=== PATIENT | female | born 1960 | race Caucasian/White ===

== ENCOUNTER 2019-01-11 15:49 | Emergency (ER) | payer OTHER ==
[2019-01-11] MEDS ORDERED: Acetaminophen/HYDROcodone 325-10 MG Tab PO ONE (15:50)
[2019-01-11] MEDS ORDERED: Acetaminophen/HYDROcodone 325-5 MG Tab PO ONE (15:50)
[2019-01-11] MEDS ORDERED: Sodium Chloride 0.9% 1,000 ML IV ONE ×2 (16:49→17:53)
[2019-01-11 17:16] LABS: ANION GAP 14.1; CHLORIDE,CL 102 mmol/L (101-111); SODIUM,NA 139 mmol/L (135-145)
--- NOTE | 2019-01-11 17:45 | EDM.PDOC ---
<Bakari Yuan - Last Filed: 01/11/19 19:36> ED HPI GENERAL MEDICAL PROBLEM - General Chief Complaint: Genitourinary Problem Stated Complaint: UTI MAYBE KIDNEY STONES Time Seen by Provider: 01/11/19 16:44 - Related Data Allergies Allergy/AdvReac Type Severity Reaction Status Date / Time azithromycin [From Zithromax] Allergy Cannot Verified 01/11/19 16:00 Remember fluconazole [From Diflucan] Allergy Hives Verified 01/11/19 16:00 mold Allergy Cannot Verified 01/11/19 16:00 Remember pollen extracts Allergy Cannot Verified 01/11/19 16:00 Remember Sulfa (Sulfonamide Allergy Hives Verified 01/11/19 16:00 Antibiotics) BEE STINGS Allergy Cannot Uncoded 01/11/19 16:00 Remember Home Meds: Home Meds DULoxetine HCl [Cymbalta] 60 mg PO DAILY 01/11/19 [History] Montelukast [Singulair] 10 mg PO BEDTIME 01/11/19 [History] Course - Vital Signs Last Recorded V/S: Last Vital Signs Temp 98.2 F 01/11/19 15:56 Pulse 69 01/11/19 19:03 Resp 16 01/11/19 19:03 BP 131/72 01/11/19 19:03 Pulse Ox 98 01/11/19 19:03 - Orders/Labs/Meds Labs: Laboratory Tests 01/11/19 01/11/19 01/11/19 Range/Units 16:13 16:44 16:44 WBC 7.1 (5.0-10.0) 10^3/uL RBC 4.81 (4.2-5.4) 10^6/uL Hgb 13.9 (12.0-16.0) g/dL Hct 42.0 (37.0-47.0) % MCV 87.3 (80-100) fL MCH 28.9 (27.0-34.0) pg MCHC 33.1 (33.0-35.0) g/dL Plt Count 223 (150-450) 10^3/uL Neut % (Auto) 76.1 H (42.2-75.2) % Lymph % (Auto) 15.0 L (20.5-50.1) % [place] % (Auto) 6.5 (2-8) % Eos % (Auto) 2.1 (1.0-3.0) % Baso % (Auto) 0.3 (0.0-1.0) % Sodium 139 (135-145) mmol/L Potassium 3.1 L (3.6-5.0) mmol/L Chloride 102 (101-111) mmol/L Carbon Dioxide 26.0 (21.0-31.0) mmol/L Anion Gap 14.1 BUN 16 (7-18) mg/dL Creatinine 0.8 (0.6-1.3) mg/dL Est Cr Clr Drug Dosing 65.38 mL/min Estimated GFR (MDRD) > 60 BUN/Creatinine Ratio 20.00 Glucose 128 H (74-105) mg/dL Calcium 8.9 (8.4-10.2) mg/dl Total Bilirubin 0.8 (0.2-1.0) mg/dL AST 18 (10-42) IU/L ALT 17 (10-60) IU/L Alkaline Phosphatase 53 (42-121) IU/L Total Protein 6.7 (6.7-8.2) g/dl Albumin 4.3 (3.2-5.5) g/dl Globulin 2.4 Albumin/Globulin Ratio 1.79 Urine Color Red (YELLOW) Urine Appearance Cloudy (CLEAR) Urine pH 5.5 (5.0-9.0) Ur Specific [place] 1.025 (1.005-1.030) Urine Protein 100 H (NEGATIVE) Urine Glucose (UA) Negative (NEGATIVE) Urine Ketones Trace H (NEGATIVE) Urine Occult Blood Large H (NEGATIVE) Urine Nitrite Negative (NEGATIVE) Urine Bilirubin Small H (NEGATIVE) Urine Urobilinogen 0.2 (0.2-1.0) mg/dL Ur Leukocyte Esterase Negative (NEGATIVE) Urine RBC Packed H /HPF Urine WBC 0-5 (0-5/HPF) /HPF Ur Epithelial Cells Rare /HPF Urine Bacteria Few (0-FEW/HPF) /HPF Meds: Medications Discontinued Medications Generic Name Dose Route Start Last Admin Trade Name Freq PRN Reason Stop Dose Admin Hydrocodone Bitart/Acetaminophen Confirm 01/11/19 19:42 01/11/19 19:55 Glen 325-5 Mg Administered 01/11/19 19:43 Not Given Dose 2 tab .ROUTE .STK-MED ONE Hydrocodone Bitart/Acetaminophen 2 tab 01/11/19 15:50 Glen 325-10 Mg PO 01/11/19 15:51 .STK-MED ONE Hydrocodone Bitart/Acetaminophen 2 tab 01/11/19 15:50 Glen 325-5 Mg PO 01/11/19 15:51 .STK-MED ONE Diphenhydramine HCl 25 mg 01/11/19 18:39 01/11/19 18:56 Benadryl IVPUSH 01/11/19 18:40 25 mg ONETIME ONE Administration Sodium Chloride 1,000 mls @ 999 mls/hr 01/11/19 16:49 01/11/19 16:48 Normal Saline IV 01/11/19 17:49 999 mls/hr ONETIME ONE Administration Sodium Chloride 1,000 mls @ 999 mls/hr 01/11/19 17:53 01/11/19 18:01 Normal Saline IV 01/11/19 18:53 999 mls/hr .BOLUS ONE Administration Ketorolac Tromethamine 30 mg 01/11/19 17:53 01/11/19 18:01 Toradol IVPUSH 01/11/19 17:54 30 mg ONETIME ONE Administration Orphenadrine Citrate 60 mg 01/11/19 18:39 01/11/19 19:00 Norflex IV 01/11/19 18:40 60 mg NOW STA Administration Tamsulosin HCl 0.4 mg 01/11/19 18:44 01/11/19 18:55 Flomax PO 01/11/19 18:45 0.4 mg ONETIME ONE Administration - Re-Assessments/Exams Free Text/Narrative Re-Assessment/Exam: 01/11/19 19:00 I assumed care of the patient at 1830. Her urine has cleared and she does not notice any gross hematuria anymore. Her pain is somewhat better but she still feels a spasms and discomfort in her abdomen. I reviewed the CT scan showing a 3 mm obstructing stone at the right UVJ. I will give her some Benadryl tamsulosin as well as some Norflex and reevaluate her. Service kidney stone that is also in the left renal pelvis that is nonobstructing at this time. I will give her refills on her tamsulosin that I'll send her home with as well as an bigger course of Glen as due to the probability of recurrence of kidney stone with one in the left renal pelvis. Hopefully we'll be able to control her pain once this one decides to descend. 01/11/19 19:36 following the above therapy the patient felt much better. She did not have the pain spasms or pressure that she had previously. We will discharge her home with tamsulosin hydrocodone for pain. Two dispense from the ER of the hydrocodone.strain her urine to look for kidney stone. She is comfortable with this plan and her questions were answered. Departure - Departure Time of Disposition: 19:00 Disposition: Home, Self-Care 01 Clinical Impression: Kidney stone - Discharge Information Instructions: Renal Colic, [id number], Kidney Stones, [id number], Pain Medicine Instructions, [id number] Referrals: Felix Church MD [Primary Care Provider] - Forms: ED Department Discharge Additional Instructions: Tylenol and/or ibuprofen as needed for pain. If pain not controlled with above. Glen, one tab by mouth every 46 hours when necessary pain. Prescription given to the patient. #30. Given a larger amount due to the concerns of the kidney stone that is also in the left kidney which may descend and she will have extra pain management for when this develops. Tamsulosin 1 tab by mouth at bedtime for the next 7 days. #7, 1 refill same concerns as above. increase fluids over the next couple of days to help flush the kidney stone. Strain your urine to ensure passage of the stone. Return to the emergency department if new or worsening symptoms. Check with her primary care provider in the next 35 days if not improving sooner if worse. - Assessment/Plan Assessment:: right 3 mm obstructing stone at the UVJ. Hydronephrosis. 3 mm nonobstructing stone mid aspect of the left kidney renal pelvis Plan: Tylenol and/or ibuprofen as needed for pain. If pain not controlled with above. Glen, one tab by mouth every 46 hours when necessary pain. Prescription given to the patient. #30. Given a larger amount due to the concerns of the kidney stone that is also in the left kidney which may descend and she will have extra pain management for when this develops. Tamsulosin 1 tab by mouth at bedtime for the next 7 days. #7, 1 refill same concerns as above. increase fluids over the next couple of days to help flush the kidney stone. Strain your urine to ensure passage of the stone. Return to the emergency department if new or worsening symptoms. Check with her primary care provider in the next 35 days if not improving sooner if worse. <Arina Ryan - Last Filed: 01/13/19 10:22> ED HPI GENERAL MEDICAL PROBLEM - General Source of Information: Reports: Patient History Limitations: Reports: No Limitations - History of Present Illness INITIAL COMMENTS - FREE TEXT/NARRATIVE: Patient to ER with c/o pressure/pain in the RLQ and right flank. She states she has had blood in the urine. Patient states she has had a kidney stone in the past as well, and they have had to use laser to blast them. Denies fever or chills. Admits to some nausea, but denies vomiting or diarrhea. Patient appears to be uncomfortable. Onset: Today, Sudden Right Groin Pain Score (Numeric/FACES): 5 Past Medical History HEENT History: Reports: Allergic Rhinitis, Otitis Media Cardiovascular History: Reports: None Respiratory History: Reports: None Gastrointestinal History: Reports: Chronic Constipation, Irritable Bowel Syndrome Other Gastrointestinal History: rectal bleed Genitourinary History: Reports: Renal Calculus, UTI, Recurrent Other Genitourinary History: has herpes [facility] [employer] History: Reports: Dysfunctional Uterine Bleeding Other [facility] [employer] History: 2 nvd and 1 miscariage Musculoskeletal History: Reports: Back Pain, Chronic, Fibromyalgia, Other (See Below) Other Musculoskeletal History: right sciatica with a bulging disc. Psychiatric History: Reports: Anxiety, Depression, Mood Swings, PTSD, Suicidal Ideation Other Psychiatric History: borderline personalities Endocrine/Metabolic History: Reports: None Hematologic History: Reports: None Immunologic History: Reports: None Oncologic (Cancer) History: Reports: Basal Cell Carcinoma, Malignant Melanoma, Other (See Below) Other Oncologic History: mastectomy done to pre-cancerous lumps and fibrocystic disease Dermatologic History: Reports: Cellulitis, Melanoma - Infectious Disease History Infectious Disease History: Reports: Chicken Pox - Past Surgical History HEENT Surgical History: Reports: Adenoidectomy, Myringotomy w Tube(s), Tonsillectomy Female Surgical History: Reports: Breast Reconstruction, D&C, Hysterectomy, Kidney stone extraction, Mastectomy Neurological Surgical History: Reports: Scoliosis Musculoskeletal Surgical History: Reports: Arthroscopic Knee Oncologic Surgical History: Reports: Biopsy of Breast, Lumpectomy, Mastectomy Dermatological Surgical History: Reports: Skin Biopsy Social & Family History - Family History Family Medical History: Noncontributory : Reports: Other (See Below) Other Family History: Renal Failure- Grandpa - Tobacco Use Smoking Status *Q: Never Smoker Second Hand Smoke Exposure: No - Caffeine Use Caffeine Use: Reports: None - Recreational Drug Use Recreational Drug Use: No ED ROS GENERAL - Review of Systems Review Of Systems: ROS reveals no pertinent complaints other than HPI. ED EXAM, RENAL/ - Physical Exam Exam: See Below Exam Limited By: No Limitations General Appearance: Alert, WD/WN, Mild Distress Eye Exam: Bilateral Eye: EOMI, Normal Inspection Ears: Normal External Exam, Hearing Grossly Normal Nose: Normal Inspection Throat/Mouth: Normal Inspection, Normal Voice, No Airway Compromise Head: Atraumatic, Normocephalic Neck: Normal Inspection, Supple, Non-Tender, Full Range of Motion Respiratory/Chest: No Respiratory Distress, Lungs Clear, Normal Breath Sounds, No Accessory Muscle Use, Chest Non-Tender Cardiovascular: Normal Peripheral Pulses, Regular Rate, Rhythm, No Edema, No Gallop, No JVD, No Murmur, No Rub GI/Abdominal: Normal Bowel Sounds, Soft, Tender (RLQ) (Female) Exam: Deferred Rectal (Female) Exam: Deferred Back Exam: Normal Inspection, Full Range of Motion, CVA Tenderness (R) Extremities: Normal Inspection, Normal Range of Motion, Non-Tender, Normal Capillary Refill, No Pedal Edema Neurological: Alert, Oriented, CN II-XII Intact, Normal Cognition, Normal Gait, Normal Reflexes, No Motor/Sensory Deficits Psychiatric: Normal Affect, Normal Mood Skin Exam: Warm, Dry, Intact, Normal Color, No Rash Lymphatic: No Adenopathy Course - Radiology Interpretation Free Text/Narrative:: CT of abdomen/Pelvis without contrast: FINDINGS: Lower thorax: No acute findings. ABDOMEN: Liver: Normal. No mass. Gallbladder and bile ducts: Normal. No calcified stones. No ductal dilation. Pancreas: Normal. No ductal dilation. Spleen: Normal. No splenomegaly. Adrenals: Normal. No mass. Kidneys and ureters: 3 mm obstructing stone at the right ureteral vesicle junction causing hydronephrosis as well as hydroureter on the right. 3 mm nonobstructing stone mid aspect left kidney Stomach and bowel: Normal. No obstruction. No mucosal thickening. Appendix: No evidence of appendicitis. PELVIS: Bladder: Unremarkable as visualized. Reproductive: Unremarkable as visualized. ABDOMEN and PELVIS: Intraperitoneal space: Normal. No free air. No significant fluid collection. Bones/joints: No acute fracture. No dislocation. Soft tissues: Unremarkable. Vasculature: Normal. No abdominal aortic aneurysm. Lymph nodes: Normal. No enlarged lymph nodes. IMPRESSION: 1. 3 mm obstructing stone at the right ureteral vesicle junction causing hydronephrosis as well as hydroureter on the right. 2. 3 mm nonobstructing stone mid aspect left kidney Thank you for allowing us to participate in the care of your patient. Dictated and Authenticated by: Sergio Ramierz MD 01/11/2019 6:28 PM Central Time ([place] & [place]) See Rad report
[2019-01-11] MEDS ORDERED: Ketorolac 30 MG/ML SDV IVPUSH ONE (17:53)
[2019-01-11] MEDS ORDERED: diphenhydrAMINE 50 MG/ML SDV IVPUSH ONE (18:39)
[2019-01-11] MEDS ORDERED: Tamsulosin 0.4 MG Cap.ER PO ONE (18:44)
[2019-01-11 19:04] VITALS: BP 131/72
[2019-01-11] MEDS ORDERED: Acetaminophen/HYDROcodone 325-5 MG Tab ONE (19:42)
== END 2019-01-11 19:55 | disposition home or self-care (01) ==
LOC: DL.ED 15:49
DX: N13.2 Hydronephrosis with renal and ureteral calculous obstruction (principal); Z88.1 Allergy status to other antibiotic agents; Z88.2 Allergy status to sulfonamides; Z91.030 Bee allergy status; Z88.8 Allergy status to other drugs, medicaments and biological substances; Z79.899 Other long term (current) drug therapy; Z98.890 Other specified postprocedural states; Z90.710 Acquired absence of both cervix and uterus; Z90.49 Acquired absence of other specified parts of digestive tract
CPT/HCPCS: 36415; 74176; 80053; 81001; 85025; 96365; 96366; 96375; 99284; A9270; J1200; J1885; J2360; J7030

== ENCOUNTER 2019-10-13 05:14 | Day surgery (SDC) | payer OTHER ==
[~2019-10-13 05:14] MED LIST: Dextrose 5%-0.45% NaCl 1,000 ML IV SCH; Sodium Chloride 0.9% 10 ML Syringe FLUSH PRN
[2019-10-13] MEDS ORDERED: fentaNYL 100 MCG/2 ML SDV IV ONE ×3 (05:15→06:34)
[2019-10-13] MEDS ORDERED: Midazolam 1 MG/ML 2 ML SDV IV ONE ×3 (05:15→06:35)
[2019-10-13] MEDS ORDERED: fentaNYL 100 MCG/2 ML SDV ONE (06:14)
[2019-10-13] MEDS ORDERED: Midazolam 1 MG/ML 2 ML SDV ONE (06:14)
[2019-10-13 10:58] VITALS: BP 116/64; PULSE 50
--- NOTE | 2019-10-13 13:49 | OR ---
DATE: 10/13/2019 PROCEDURE PERFORMED: Esophagogastroduodenoscopy and multiple pinch biopsies. INSTRUMENT USED: GIF-HQ190 Olympus video panendoscope. PREMEDICATIONS: No oral or topical anesthesia used. Fentanyl 100 mcg intravenous, Versed 2 mg intravenous, nasal O2 cannula. The procedure was done under pulse oximetry, BP recording, and cartridge belt puncher. INDICATION: The patient with persistent upper abdominal pain as well as dyspepsia and bloating, unexplained and not responsive to medical measures, on PPI. Esophagogastroduodenoscopy is performed for detection of any active erosive lesions, [place] esophagus and/or malignancy also under consideration, H. pylori status to be determined, small bowel biopsies to be obtained for celiac disease if indicated, endoscopic hemostasis therapy if needed. DESCRIPTION OF PROCEDURE: The scope was passed with ease. Adequate visualization of the esophagus was made from proximal to distal areas. No upper esophageal lesions identified. No distal esophageal stricture. No uphill or downhill esophageal varices. No Mayra-Cuellar tear. No evidence of erosive esophagitis by [place] criteria. No esophageal polyp or tumor mass identified. Z-line was seen at around 39 cm distal to the oral verge, configuration consistent with grade 1 by ZAP classification. No proximal gastric varices noted. Gastric fundus examination by retroflexion showed no polypoid lesions. No gastric ulcer, malignant mass, or vascular ectasia identified. Patchy antral mucosal erythema was noted. Duodenal bulb showed patchy erythema and erosion in the postbulbar area. Visualized second part of the duodenum otherwise was unremarkable. Multiple pinch biopsies, 4 in number, were taken from different areas of the second part of the duodenum, and tissues were also obtained from the duodenal bulb at 9 and 12 o'clock positions and sent for histopathologic evidence of celiac disease. Multiple pinch biopsies were obtained from the gastric antrum and proximal body and sent for PyloriTek test for H. pylori and histopathology. No bleeding was noted from any of the visualized areas at the completion of examination. Photographs were taken of duodenal bulb, gastric antrum, fundus, and distal esophagus. IMPRESSION: 1. Patchy antral gastritis. 2. Patchy duodenitis. 3. Duodenal erosion. The patient tolerated the procedure well. [facility] /[id number]
== END 2019-10-13 08:52 | disposition home or self-care (01) ==
LOC: DL.ENDO 05:14
PROVIDERS: ATTEND Internal Medicine Gastroenterology
DX: K29.70 Gastritis, unspecified, without bleeding (principal); K29.80 Duodenitis without bleeding; K26.9 Duodenal ulcer, unspecified as acute or chronic, without hemorrhage or perforation; Z90.49 Acquired absence of other specified parts of digestive tract; Z88.3 Allergy status to other anti-infective agents; Z88.2 Allergy status to sulfonamides; Z88.1 Allergy status to other antibiotic agents
CPT/HCPCS: 43239; 87077; J2250; J3010; J7042

== ENCOUNTER 2019-10-14 07:01 | Day surgery (SDC) | payer OTHER ==
[~2019-10-14 07:01] MED LIST changes: -Dextrose 5%-0.45% NaCl 1,000 ML IV SCH; +Midazolam 1 MG/ML 2 ML SDV ONE; -Sodium Chloride 0.9% 10 ML Syringe FLUSH PRN; +fentaNYL 100 MCG/2 ML SDV ONE
[2019-10-14] MEDS ORDERED: Dextrose 5%-0.45% NaCl 1,000 ML IV SCH (07:30)
[2019-10-14] MEDS ORDERED: fentaNYL 100 MCG/2 ML SDV IV ONE ×3 (08:24→08:34)
[2019-10-14] MEDS ORDERED: Midazolam 1 MG/ML 2 ML SDV IV ONE ×6 (08:25→08:32)
[2019-10-14 10:49] VITALS: BP 105/65; PULSE 61
--- NOTE | 2019-10-14 15:11 | OR ---
DATE: 10/14/2019 PROCEDURE PERFORMED: Total colonoscopy. INSTRUMENT USED: [id number]-H190DL Olympus video colonoscope. PREMEDICATIONS: Fentanyl 100 mcg intravenous, Versed 4 mg intravenous. Nasal O2 cannula. The procedure was done under pulse oximetry, BP recording, and electronic device monitor. INDICATIONS: The patient with rectal bleeding and increasing constipation. Colonoscopic examination was done for detection of any polypoid lesions and removal, endoscopic hemostasis therapy if needed. DESCRIPTION OF PROCEDURE: Initial rectal exam showed large external hemorrhoidal tags and internal hemorrhoids without bleeding from them. The colonoscope was passed with ease up to the ileocecal area. Photographs were taken of the normal-appearing cecum identified by landmarks of appendiceal orifice and double-bulged ileocecal folds. No bleeding was noted from any of the visualized areas at the commencement of the examination. No stricture. No vascular ectasia. No large isolated ulcerations seen. No evidence of diffuse inflammatory bowel disease in the form of friability, contact bleeding, or ulcerations. No polyp or tumor mass identified. There was moderate amount of liquid material that had to be aspirated clear. The bowel preparation was found to be adequate, [place] scale 2 in all the regions. Probing the proximal sides of folds and flexures using adequate distention and clearing up the stool material, withdrawal of the scope was made, cecum to rectum time over 6 minutes. No bleeding was noted from any of the visualized areas at the completion of examination. IMPRESSION: External and internal hemorrhoids. The patient tolerated the procedure well. [facility] /[id number]
== END 2019-10-14 10:55 | disposition home or self-care (01) ==
LOC: DL.ENDO 07:01
PROVIDERS: ATTEND Internal Medicine Gastroenterology
DX: K62.5 Hemorrhage of anus and rectum (principal); K59.00 Constipation, unspecified; K64.8 Other hemorrhoids; K64.4 Residual hemorrhoidal skin tags; F41.1 Generalized anxiety disorder; F32.9 Major depressive disorder, single episode, unspecified; Z90.49 Acquired absence of other specified parts of digestive tract; Z88.3 Allergy status to other anti-infective agents; Z88.2 Allergy status to sulfonamides
CPT/HCPCS: 45378; J2250; J3010; J7042; G0121

== ENCOUNTER 2021-11-27 14:32 | Emergency (ER) | payer OTHER ==
[2021-11-27 16:30] VITALS: BP 136/91; PULSE 103
[2021-11-27] MEDS ORDERED: Ketorolac 30 MG/ML SDV IVPUSH ONE (16:36)
[2021-11-27] MEDS ORDERED: HYDROmorphone 0.5 MG/0.5 ML Syringe IVPUSH ONE (16:36)
[2021-11-27] MEDS ORDERED: Sodium Chloride 0.9% 1,000 ML IV ONE (16:36)
[2021-11-27] MEDS ORDERED: Sodium Chloride 0.9% 10 ML Syringe FLUSH PRN (16:36)
--- NOTE | 2021-11-27 17:00 | CT ---
EXAMINATION: Abdomen Pelvis wo Cont SEX: Female AGE: 61 years CLINICAL HISTORY: 61-year-old female complaining of right flank pain that radiates to the groin (hematuria). Scan technique: Volume acquisition of data emergency unenhanced CT scan abdomen and pelvis (renal stone study) obtained with patient lying supine on the Siemens multi slice scanner [place], [place]. All data archived in the PACS system for storage, reformatting axial/sagittal/coronal planes and study. Interpretation: Abnormal. 1. *Solitary tiny 1.5 x 3.0 mm oval calcification lodged in the distal left ureter (URETEROLITH). Associated mild ureterectasis and pyelectasis identified proximally left kidney. 2. Similar tiny calyceal calcification lower midpole contralateral left kidney. No signs of obstructive uropathy on the left. 3. Unenhanced midline urinary bladder unremarkable. 4. Scattered arterial vascular calcifications normal caliber aortoiliac vessels. Phleboliths in the pelvis. 5. No pelvic or abdominal mass lesion, mesenteric or retroperitoneal lymphadenopathy, signs of mechanical bowel obstruction, ascites or free intraperitoneal air. 6. Gallbladder, unenhanced liver, stomach, spleen, pancreas and adrenal glands anatomically correct i.e. negative. 7. Osteoporosis; chronic L4-5 and L5-S1 disc disease; atrophic spondylosis lumbar spine. Bilateral breast prostheses.
[2021-11-27 17:29] LABS: CHLORIDE,CL 102 mmol/L (98-107); SODIUM,NA 142 mmol/L (136-145)
[2021-11-27] MEDS ORDERED: cefTRIAXone 2 GM in Sodium Chloride 0.9% 100 ML IV ONE (17:33)
--- NOTE | 2021-11-27 17:48 | EDM.PDOC ---
Scribed by Marily Howell 11/27/21 1609 for Bandar Mckinney MD ED HPI GENERAL MEDICAL PROBLEM - General Chief Complaint: Flank Pain Stated Complaint: KIDNEY STONE OR UTI PER PT Time Seen by Provider: 11/27/21 16:27 Source of Information: Reports: Patient, RN, RN Notes Reviewed History Limitations: Reports: No Limitations - History of Present Illness INITIAL COMMENTS - FREE TEXT/NARRATIVE: Patient presents [facility] ED by POV stating that she has right flank pain and blood in the urine that started today while at work. Now she has pain in the LLQ as well. She has a history of kidney stones. Her pain is 9/10 but she has not taken anything for it. Onset: Today Duration: Constant Location: Reports: Other (flank) Quality: Reports: Ache Severity: Severe Improves with: Reports: None Worsens with: Reports: None Associated Symptoms: Reports: No Other Symptoms Abdomen Pain Score (Numeric/FACES): 9 - Related Data Allergies Allergy/AdvReac Type Severity Reaction Status Date / Time azithromycin [From Zithromax] Allergy Cannot Verified 11/27/21 16:31 Remember fluconazole [From Diflucan] Allergy Hives Verified 11/27/21 16:31 mold Allergy Cannot Verified 11/27/21 16:31 Remember pollen extracts Allergy Cannot Verified 11/27/21 16:31 Remember Sulfa (Sulfonamide Allergy Hives Verified 11/27/21 16:31 Antibiotics) BEE STINGS Allergy Cannot Uncoded 11/27/21 16:31 Remember Home Meds: Home Meds DULoxetine HCl [Cymbalta] 60 mg PO DAILY 01/11/19 [History] Montelukast [Singulair] 10 mg PO BEDTIME 01/11/19 [History] Budesonide [Pulmicort] 1 vial NEB BID 10/12/19 [History] Ipratropium/Albuterol Sulfate [Iprat-Albut 0.5-3(2.5) mg/3 ml] 1 vial INH TID PRN 10/12/19 [History] Meclizine [Antivert] 25 mg PO TID 10/12/19 [History] diphenhydrAMINE [Benadryl] 25 mg PO DAILY 10/12/19 [History] valACYclovir [Valtrex] 500 mg PO TID PRN 10/12/19 [History] Past Medical History HEENT History: Reports: Allergic Rhinitis, Otitis Media Other HEENT History: HX OF RECURRENT SINUS INFECTIONS Cardiovascular History: Reports: None Respiratory History: Reports: Sleep Apnea Gastrointestinal History: Reports: Chronic Constipation, Colon Polyp, Hemorrhoids, Irritable Bowel Syndrome Other Gastrointestinal History: rectal bleed Genitourinary History: Reports: Renal Calculus, UTI, Recurrent Other Genitourinary History: has herpes SPOT CHECKER History: Reports: Dysfunctional Uterine Bleeding, , Spontaneous Other SPOT CHECKER History: 2 nvd and 1 miscariage Musculoskeletal History: Reports: Back Pain, Chronic, Fibromyalgia, Other (See Below) Other Musculoskeletal History: right sciatica with a bulging disc. Neurological History: Reports: None Psychiatric History: Reports: Anxiety, Depression, Mood Swings, PTSD, Suicidal Ideation, Other (See Below) Other Psychiatric History: borderline personalities Endocrine/Metabolic History: Reports: None Hematologic History: Reports: None Immunologic History: Reports: None Oncologic (Cancer) History: Reports: Basal Cell Carcinoma, Malignant Melanoma, Other (See Below) Other Oncologic History: mastectomy done to pre-cancerous lumps and fibrocystic disease. BASAL CELL, FACE CHEST & ARMS Dermatologic History: Reports: Cellulitis, Melanoma - Infectious Disease History Infectious Disease History: Reports: Chicken Pox - Past Surgical History Male Surgical History: Social & Family History - Family History Family Medical History: No Pertinent Family History : Reports: Other (See Below) Other Family History: Renal Failure- Grandpa - Caffeine Use Caffeine Use: Reports: None ED ROS GENERAL - Review of Systems Review Of Systems: Comprehensive ROS is negative, except as noted in HPI. ED EXAM, RENAL/ - Physical Exam Exam: See Below Exam Limited By: No Limitations General Appearance: Alert, WD/WN, No Apparent Distress Throat/Mouth: Normal Voice, No Airway Compromise, Other (Dry oral mucosa) Head: Atraumatic, Normocephalic Neck: Normal Inspection Respiratory/Chest: No Respiratory Distress, Lungs Clear, Normal Breath Sounds, No Accessory Muscle Use, Chest Non-Tender Cardiovascular: Regular Rate, Rhythm, Tachycardia GI/Abdominal: Normal Bowel Sounds, Soft, Tender (Generalized lower abdominal tenderness). No: Guarding, Rigid, Rebound Back Exam: Full Range of Motion. No: CVA Tenderness (L), CVA Tenderness (R) Extremities: Normal Range of Motion Neurological: Alert, Oriented Psychiatric: Normal Mood Skin Exam: Warm, Dry, Intact, Normal Color, No Rash Course - Vital Signs Last Recorded V/S: Last Vital Signs Temp 97.1 F 11/27/21 16:28 Pulse 103 H 11/27/21 16:28 Resp 14 11/27/21 16:28 BP 136/91 H 11/27/21 16:28 Pulse Ox 96 11/27/21 16:28 - Orders/Labs/Meds Orders: Active Orders 24 hr Category Date Time Status Peripheral IV Care [RC] . DIRECTED Care 11/27/21 16:36 Active CULTURE URINE [RM] Stat Lab 11/27/21 14:46 Received Sodium Chloride 0.9% [Saline Flush] Med 11/27/21 16:36 Active 10 ml FLUSH ASDIRECTED PRN cefTRIAXone [Rocephin] 2 gm Med 11/27/21 17:33 Active Sodium Chloride 0.9% [Normal Saline AdvBag] 100 ml IV ONETIME Peripheral IV Insertion Adult [OM.PC] Stat Oth 11/27/21 16:36 Ordered Medication Orders Ceftriaxone Sodium 2 gm/ (Sodium Chloride) 100 mls @ 200 mls/hr IV ONETIME ONE Stop: 11/27/21 18:02 Sodium Chloride (Sodium Chloride 0.9% 10 Ml Syringe) 10 ml FLUSH ASDIRECTED PRN PRN Reason: Keep Vein Open Labs: Laboratory Tests 11/27/21 11/27/21 11/27/21 Range/Units 14:46 17:06 17:06 WBC 12.2 H (5.0-10.0) 10^3/uL RBC 4.91 (4.2-5.4) 10^6/uL Hgb 14.0 (12.0-16.0) g/dL Hct 43.1 (37.0-47.0) % MCV 87.8 (80-100) fL MCH 28.5 (27.0-34.0) pg MCHC 32.5 L (33.0-35.0) g/dL Plt Count 254 (150-450) 10^3/uL Neut % (Auto) 81.7 H (42.2-75.2) % Lymph % (Auto) 11.5 L (20.5-50.1) % Harding % (Auto) 6.0 (2-8) % Eos % (Auto) 0.6 L (1.0-3.0) % Baso % (Auto) 0.2 (0.0-1.0) % Sodium 142 (136-145) mmol/L Potassium 4.0 (3.5-5.1) mmol/L Chloride 102 (98-107) mmol/L Carbon Dioxide 30 (21-32) mmol/L Anion Gap 14.0 H (7-13) mEq/L BUN 15 (7-18) mg/dL Creatinine 0.91 (0.55-1.02) mg/dL Est Cr Clr Drug Dosing 57.68 mL/min Estimated GFR (MDRD) > 60 Glucose 121 H (70-99) mg/dL Calcium 9.1 (8.5-10.1) mg/dL Urine Color Red (YELLOW) Urine Appearance Cloudy (CLEAR) Urine pH 5.5 (5.0-9.0) Ur Specific Rachel >= 1.030 (1.005-1.030) Urine Protein >=300 H (NEGATIVE) Urine Glucose (UA) Negative (NEGATIVE) Urine Ketones Trace H (NEGATIVE) Urine Occult Blood Large H (NEGATIVE) Urine Nitrite Positive H (NEGATIVE) Urine Bilirubin Moderate H (NEGATIVE) Urine Urobilinogen 1.0 (0.2-1.0) mg/dL Ur Leukocyte Esterase Negative (NEGATIVE) Urine RBC Packed H (0-5) /HPF Urine WBC 5-10 H (0-5/HPF) /HPF Ur Epithelial Cells Few (NOT SEEN) /HPF Urine Bacteria Moderate H (0-FEW/HPF) /HPF Meds: Medications Generic Name Dose Route Start Last Admin Trade Name Freq PRN Reason Stop Dose Admin Ceftriaxone Sodium 2 gm/ 100 mls @ 200 mls/hr 11/27/21 17:33 Sodium Chloride IV 11/27/21 18:02 ONETIME ONE Sodium Chloride 10 ml 11/27/21 16:36 Sodium Chloride 0.9% 10 Ml Syringe FLUSH ASDIRECTED PRN Keep Vein Open Discontinued Medications Generic Name Dose Route Start Last Admin Trade Name Freq PRN Reason Stop Dose Admin Hydromorphone HCl 0.5 mg 11/27/21 16:36 11/27/21 17:18 Hydromorphone 0.5 Mg/0.5 Ml Syringe IVPUSH 11/27/21 16:37 0.5 mg ONETIME ONE Administration Sodium Chloride 1,000 mls @ 999 mls/hr 11/27/21 16:36 11/27/21 17:18 Normal Saline IV 11/27/21 17:36 999 mls/hr .BOLUS ONE Administration Ketorolac Tromethamine 30 mg 11/27/21 16:36 11/27/21 17:19 Ketorolac 30 Mg/Ml Sdv IVPUSH 11/27/21 16:37 30 mg ONETIME ONE Administration - Radiology Interpretation Free Text/Narrative:: CT abdomen and pelvis: Solitary tiny 1.5x3.0mm oval calcification lodged in the distal left ureter (ureterolith). Associated mild ureterectasis and pyelectasis identified proximally left kidney. Similar tiny calyceal calcification lower midpole contralateral left kidney. No signs of obstructive uropathy on the left. Unenhanced midline urinary bladder unremarkable. See rad report. Departure - Departure Time of Disposition: 18:40 Disposition: Home, Self-Care 01 Condition: Good Clinical Impression: Kidney stone on left side, UTI, Urinary tract infectious disease - Discharge Information *PRESCRIPTION DRUG MONITORING PROGRAM REVIEWED*: No *COPY OF PRESCRIPTION DRUG MONITORING REPORT IN PATIENT HOWARD: No Instructions: Urinary Tract Infection, Adult, [id number], Kidney Stones, [id number], Renal Colic, [id number] Forms: ED Department Discharge Additional Instructions: Rx: Cipro 500mg Rx: Zofran 4mg Rx: Flomax 0.4mg Rx: Percocet (Oxycodone) 5mg/325mg *Do not drive while under the influence of this medication. Drink plenty of water. Follow up in clinic with Dr. Church in 2 to 3 days for recheck, and for referral to urology clinic if needed. Sepsis Event Note (ED) - Focused Exam Vital Signs: Vital Signs Temp Pulse Resp BP Pulse Ox 11/27/21 16:28 97.1 F 103 H 14 136/91 H 96 - My Orders Last 24 Hours: My Active Orders 11/27/21 14:46 CULTURE URINE [RM] Stat 11/27/21 16:36 Peripheral IV Care [RC] . DIRECTED Sodium Chloride 0.9% [Saline Flush] 10 ml FLUSH ASDIRECTED PRN Peripheral IV Insertion Adult [OM.PC] Stat 11/27/21 17:33 cefTRIAXone [Rocephin] 2 gm Sodium Chloride 0.9% [Normal Saline AdvBag] 100 ml IV ONETIME - Assessment/Plan Last 24 Hours: My Active Orders 11/27/21 14:46 CULTURE URINE [RM] Stat 11/27/21 16:36 Peripheral IV Care [RC] . DIRECTED Sodium Chloride 0.9% [Saline Flush] 10 ml FLUSH ASDIRECTED PRN Peripheral IV Insertion Adult [OM.PC] Stat 11/27/21 17:33 cefTRIAXone [Rocephin] 2 gm Sodium Chloride 0.9% [Normal Saline AdvBag] 100 ml IV ONETIME I have read and agree with the documentation that has been completed regarding this visit. By signing this record, I attest that the documentation was completed in my physical presence and is an accurate record of the encounter.
== END 2021-11-27 18:08 | disposition home or self-care (01) ==
LOC: DL.ED 14:32
DX: N20.0 Calculus of kidney (principal); N39.0 Urinary tract infection, site not specified; Z88.1 Allergy status to other antibiotic agents; Z88.8 Allergy status to other drugs, medicaments and biological substances; Z91.048 Other nonmedicinal substance allergy status; Z88.2 Allergy status to sulfonamides; Z91.030 Bee allergy status; Z79.899 Other long term (current) drug therapy
CPT/HCPCS: 36415; 74176; 80048; 81001; 85025; 87086; 96365; 96375; 99284; J0696; J1170; J1885; J7030

== ENCOUNTER 2024-06-01 05:36 | Day surgery (SDC) | payer OTHER ==
[2024-06-01] MEDS ORDERED: fentaNYL 100 MCG/2 ML SDV IV ONE (05:37)
[2024-06-01] MEDS ORDERED: Midazolam 1 MG/ML 2 ML SDV IV ONE (05:37)
[2024-06-01] MEDS ORDERED: Midazolam 1 MG/ML 2 ML SDV ONE (06:08)
[2024-06-01] MEDS ORDERED: fentaNYL 100 MCG/2 ML SDV ONE (06:09)
[2024-06-01] MEDS: Dextrose 5%-0.45% NaCl 1,000 ML IV SCH (06:24)
[2024-06-01] MEDS: fentaNYL 100 MCG/2 ML SDV IV ONE ×4 (06:50→07:02)
[2024-06-01] MEDS: Midazolam 1 MG/ML 2 ML SDV IV ONE ×6 (06:51→06:58)
[2024-06-01 08:55] VITALS: BP 124/66; PULSE 72
== END 2024-06-01 09:02 | disposition home or self-care (01) ==
LOC: DL.ENDO 05:36
PROVIDERS: ATTEND Internal Medicine Gastroenterology
DX: Z12.11 Encounter for screening for malignant neoplasm of colon (principal); D12.3 Benign neoplasm of transverse colon; K64.4 Residual hemorrhoidal skin tags; K64.8 Other hemorrhoids; F41.8 Other specified anxiety disorders; Z85.038 Personal history of other malignant neoplasm of large intestine
CPT/HCPCS: 45385; J2250; J3010; J7799